=== PATIENT | female | born 1980 | race Caucasian/White ===

== ENCOUNTER 2017-02-03 11:49 | Emergency (ER) | payer OTHER ==
[~2017-02-03] VITALS: Ht 170.2 cm; Wt 116.0 kg
[~2017-02-03 11:49] MED LIST: MEDR4PAK PO; ROBA750T PO; TRAM50TA PO
[2017-02-03 11:54] VITALS: BP 171/104; PULSE 99; RESP 20; TEMP 98; O2SAT 98
[2017-02-03] MEDS ORDERED: SODIUM CHLOR 0.9% 1000 ML INJ 1,000 ML IV ONE (12:30)
[2017-02-03] MEDS ORDERED: DIAZEPAM 5 MG TAB PO ONE (12:30)
[2017-02-03] MEDS ORDERED: KETOROLAC TROMETHAMINE 30 MG/ML (IVP) VIAL IV PUSH ONE (12:30)
[2017-02-03 12:35] VITALS: BP 139/88; PULSE 84; RESP 18; O2SAT 96
[2017-02-03 12:59] LABS: AUTOMATED NEUTROPHIL # 5.7 TH/MM3 (1.8-7.7); BASOPHIL % 0.4 % (0.0-2.0); EOSINOPHIL # 0.7 TH/MM3 (0-0.4); EOSINOPHIL % 6.9 % (0.0-4.0); HEMATOCRIT 41.7 % (35.0-46.0); HEMO FLAGS DIFF FINAL; LYMPH % 27.3 % (9.0-44.0); LYMPHOCYTE # 2.6 TH/MM3 (1.0-4.8); MEAN CELL VOLUME 79.8 FL (80.0-100.0); MEAN CORPUSCULAR HEMOGLOBIN 26.3 PG (27.0-34.0); MEAN CORPUSCULAR HGB CONC 32.9 % (32.0-36.0); MONO % 6.9 % (0.0-8.0); NEUT % 58.5 % (16.0-70.0); PLATELET COUNT 211 TH/MM3 (150-450); RED BLOOD COUNT 5.22 MIL/MM3 (4.00-5.30); RED CELL DISTRIBUTION WIDTH 14.7 % (11.6-17.2); WHITE BLOOD COUNT 9.7 TH/MM3 (4.0-11.0)
[2017-02-03 13:09] LABS: BACTERIA, URINE MANY /hpf; BLOOD, URINE TRACE (NEG); COMMENT (UR) CULTURE INDICATED; CULTURE IF INDICATED CULTURE INDICATED; GLUCOSE,URINE NEG (NEG); KETONE, URINE NEG (NEG); MUCUS URINE FEW /lpf (OCC); PH, URINE 5.5 (5.0-8.5); SQUAMOUS EPITHELIAL CELL URINE 6 /hpf (0-5); TRANSITIONAL EPI CELLS, URINE <1 /hpf; URINE COLOR YELLOW (YELLW/STRAW)
[2017-02-03 13:11] LABS: NITRITE,URINE POS (NEG)
[2017-02-03 13:13] LABS: ANION GAP 8 MEQ/L (5-15); BICARBONATE 28.5 MEQ/L (21.0-32.0); BLOOD UREA NITROGEN 10 MG/DL (7-18); CHLORIDE 105 MEQ/L (98-107); GLOMERULAR FILTRATION RATE 61 ML/MIN (>89); POTASSIUM 3.9 MEQ/L (3.5-5.1); SODIUM (NA) 141 MEQ/L (136-145)
--- NOTE | 2017-02-03 13:42 | RADRPT ---
EXAM DATE/TIME: 02/03/2017 13:26 [facility] COMPARISON: No previous studies available for comparison. INDICATIONS : Dizziness, bilateral extremity numbness. RADIATION DOSE: 47.38 CTDIvol (mGy) MEDICAL HISTORY : None SURGICAL HISTORY : Tubal ligation. ENCOUNTER: Initial ACUITY: 1 day PAIN SCALE: 0/10 LOCATION: cranial TECHNIQUE: Multiple contiguous axial images were obtained of the head. Using automated exposure control and adj ustment of the mA and/or kV according to patient size, radiation dose was kept as low as reasonably a chievable to obtain optimal diagnostic quality images. FINDINGS: There is no evidence for intracranial hemorrhage, mass effect, mass lesions, edema, or extra-axial fl uid collections. The visualized bony structures appear intact. The ventricles are normal size for t he patient's age. There are no signs of acute infarction for technique. CONCLUSION: Unremarkable study. Ad Velez MD on February 03, 2017 at 13:39 Board Certified Radiologist. This report was verified electronically.
--- NOTE | 2017-02-03 13:50 | RADRPT ---
EXAM DATE/TIME: 02/03/2017 13:04 [facility] COMPARISON: No previous studies available for comparison. INDICATIONS : Neck pain. MEDICAL HISTORY : Asthma. SURGICAL HISTORY : section. Cholecystectomy. ENCOUNTER: Initial ACUITY: 4-6 months PAIN SCORE: 6/10 LOCATION: Paraspinal TECHNIQUE: Multiplanar, multisequence MRI examination of the cervical spine was performed. FINDINGS: The marrow signal appears intact, and the spinal cord appears intact with technique. C2-C3: No appreciable compromise to the thecal sac, exiting nerve roots are seen. The neural forami na are patent bilaterally. No appreciable thecal sac stenosis is seen. C3-C4: No appreciable compromise to the thecal sac, exiting nerve roots are seen. The neural forami na are patent bilaterally. No appreciable thecal sac stenosis is seen. C4-C5: No appreciable compromise to the thecal sac, exiting nerve roots are seen. The neural forami na are patent bilaterally. No appreciable thecal sac stenosis is seen. Mild central disc bulge is pre sent without any significant compromise to the thecal sac or the exiting nerve roots. C5-C6: No appreciable compromise to the thecal sac, exiting nerve roots are seen. The neural foramin a are patent bilaterally. No appreciable thecal sac stenosis is seen. Mild central disc bulge is pres ent without any significant compromise to the thecal sac or the exiting nerve roots. C6-C7: There is a moderately sized central disc herniation indenting the anterior thecal sac without any significant compromise to the thecal sac or the exiting nerve roots. C7-T1: No appreciable compromise to the thecal sac, exiting nerve roots are seen. The neural foramin a are patent bilaterally. No appreciable thecal sac stenosis is seen. CONCLUSION: Central disc herniation C6-7 and there are bulging discs at C4-5 and C5-6 without any sig nificant compromise to the thecal sac or the exiting nerve roots. Ad Velez MD on February 03, 2017 at 13:46 Board Certified Radiologist. This report was verified electronically.
[2017-02-03 14:42] VITALS: BP 139/90; PULSE 98; RESP 18
[2017-02-03] MEDS ORDERED: MECLIZINE HCL 25 MG TAB PO ONE (15:00)
[2017-02-03] MEDS ORDERED: DIAZ5 PO (15:16)
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
[2017-02-03] MEDS ORDERED: MACR100C2 PO (15:19)
--- NOTE | 2017-02-04 14:14 | EKG ---
Date Performed: 02/03/2017 Time Performed: 12:30:47 PTAGE: 36 years EKG: Sinus rhythm Compared to previous tracing, sinus arrhythmia is no longer present. NORMAL ECG PREVIOUS TRACING : 11/19/1998 12.59 DOCTOR: Earl Trivedi Interpretating Date/Time 02/04/2017 14:14:11
== END 2017-02-03 15:30 | disposition home or self-care (01) ==
LOC: NEPD 11:49
DX: M54.12 Radiculopathy, cervical region (principal); N30.00 Acute cystitis without hematuria; B96.20 Unspecified Escherichia coli [E. coli] as the cause of diseases classified elsewhere; R42 Dizziness and giddiness; Z87.09 Personal history of other diseases of the respiratory system
CPT/HCPCS: 70450; 72141; 80048; 81001; 84484; 85025; 87077; 87086; 87186; 93005; 96361; 96374; 99284; J1885; J7030

== ENCOUNTER 2017-04-12 16:37 | Emergency (ER) | payer OTHER ==
[~2017-04-12] VITALS: Ht 170.2 cm; Wt 115.0 kg
[~2017-04-12 16:37] MED LIST changes: +DIAZ5 PO; +MACR100C2 PO
[2017-04-12 16:42] VITALS: BP 163/93; PULSE 92; RESP 17; TEMP 98.9; O2SAT 98
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
[2017-04-12] MEDS ORDERED: ACETAMINOPHEN/HYDROcodone 325 MG/10 MG TAB PO ONE (17:30)
[2017-04-12] MEDS ORDERED: HYDR-3583 PO (17:37)
[2017-04-12] MEDS ORDERED: TIZA4CAP3 PO (17:37)
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
== END 2017-04-12 21:11 | disposition home or self-care (01) ==
LOC: NEPD 16:37
DX: S16.1XXA Strain of muscle, fascia and tendon at neck level, initial encounter (principal); S39.012A Strain of muscle, fascia and tendon of lower back, initial encounter; J45.909 Unspecified asthma, uncomplicated; R20.2 Paresthesia of skin; V43.52XA Car driver injured in collision with other type car in traffic accident, initial encounter; Y93.89 Activity, other specified; Y92.410 Unspecified street and highway as the place of occurrence of the external cause; Y99.8 Other external cause status
CPT/HCPCS: 70450; 71010; 72125; 72128; 72131; 99284; L0150